=== PATIENT | female | born 1940 | race Caucasian/White ===

== ENCOUNTER 2017-03-29 13:49 | Emergency (ER) | payer OTHER, MEDICAID ==
[2017-03-29 14:11] VITALS: TEMP 98.1
--- NOTE | 2017-03-29 14:37 | EDPHY ---
H & P Time Seen by Provider: 03/29/17 14:07 HPI/ROS: Over the past 2 days this patient reports a moderate sore throat worse with swallowing. She still able tolerate p.o. fluids and food despite this. She reports mild achiness in the area of the anterior cervical lymph nodes associated with her symptoms and mild fatigue. She is concerned that she may have strep pharyngitis. She explains that her granddaughter presented with a sore throat that clinically looked consistent with strep this past week and was treated with antibiotics. No strep test was obtained on her granddaughter. ROS: No fevers or chills. No other constitutional symptoms HEENT: No dysphonia. No other complaints including no nasal congestion. Pulmonary: No cough. GI: No nausea vomiting new lines integumentary: No skin rash Musculoskeletal: No joint pains. 5 point ROS is otherwise negative. Past Medical/Surgical History: Immunocompetent. Hypothyroid Obese Smoking Status: Former smoker Physical Exam: Physical Exam Vital signs are normal. General: No acute distress HEENT: Oropharynx: No significant erythema. No exudates. No dysphonia. No drooling or stridor. Ears: Clear bilaterally nose is clear. Neck: No cervical lymphadenopathy is appreciated. Supple Eyes: Pupils equal and react to light. Extraocular motions are intact. Lungs: Clear to auscultation bilaterally. No respiratory distress. Cardiac: Regular rate and rhythm with no murmur gallop or rub Skin: No rash or pallor. Neuro: GCS 15. Initial differential diagnosis: Viral pharyngitis versus strep pharyngitis versus anxiety with somatic components. Constitutional: Initial Vital Signs Temperature (C) 36.7 C 03/29/17 14:08 Heart Rate 100 03/29/17 14:08 Respiratory Rate 20 03/29/17 14:08 Blood Pressure 148/78 H 03/29/17 14:08 O2 Sat (%) 94 03/29/17 14:08 O2 Delivery Mode Room Air Allergies/Adverse Reactions: wheat [Wheat] Allergy (Intermediate, Verified 03/29/17 14:06) BUTT ITCHES AFTER GOING TO BATHROOM/ STOMACH HURTS buspirone [Buspirone] Allergy (Unknown, Verified 03/29/17 14:06) lisinopril Allergy (Unknown, Verified 03/29/17 14:06) meloxicam Allergy (Unknown, Verified 03/29/17 14:06) tizanidine [Tizanidine] Allergy (Unknown, Verified 03/29/17 14:06) ANIMAL DANDER Allergy (Intermediate, Uncoded 03/29/17 14:06) ITCHY/ EYES HURT DAIRY Allergy (Intermediate, Uncoded 03/29/17 14:06) STOMACH PAIN ENVIRONMENTAL Allergy (Mild, Uncoded 03/29/17 14:06) NASAL CONGESTION/ITCHING ANTIDEPRESSANTS Allergy (Unknown, Uncoded 03/29/17 14:06) ROZAREM Allergy (Unknown, Uncoded 03/29/17 14:06) Home Medications: Medication Instructions Recorded CELECOXIB [Celebrex] 200 mg PO DAILY PRN 09/28/11 Epinastine 0.05% [Elestat 0.05%] 1 drops EACHEYE BID 09/28/11 Levothyroxine [Synthroid] 50 mcg PO DAILY 09/28/11 ZOLPIDEM TARTRATE [Ambien Cr] 12.5 mg PO HS 09/28/11 Ascorbic Acid [Vitamin C 500 mg 500 mg PO DAILY 11/21/11 (OTC)] Amoxicillin 2,000 mg PO .X1 PRN 02/22/13 Carboxymethylcellulose Sodium 3 drops EACHEYE QID 02/22/13 [Refresh Tears] Chlorpheniramine/Phenylephrine 1 tab PO HS PRN 02/22/13 [Sinus & Allergy Tablet] Cyclobenzaprine [Flexeril 10 MG 10 mg PO HS PRN 02/22/13 (RX)] Fexofenadine HCl [Ani Allergy] 180 mg PO DAILY PRN 02/22/13 Fluticasone Nasal [Flonase Nasal 1 sprays EACHNARE HS PRN 02/22/13 [place] (RX)] Herbals/Supplements -Info Only 1 each PO AD 02/22/13 Hydrocodone/APAP 5/325 [[place] 1 - 2 tab PO Q4 PRN 02/22/13 5/325 (RX)] Multivit with Calcium,Iron,Min 1 each PO DAILY 02/22/13 [Tab A Amina] Reconciled By 02/22/13 02/22/13 MDM/Departure - MDM Diagnostics: Rapid strep is negative. ED Course/Re-evaluation: Discussion: This patient appears clinically well. I suspect she has a viral pharyngitis. I counseled regarding this. - Depart Disposition: Home, Routine, Self-Care Clinical Impression: Viral pharyngitis Condition: Good Instructions: Pharyngitis (ED) Additional Instructions: Diagnosis: Viral pharyngitis Plan: Ibuprofen and/or Tylenol for discomfort as needed Symptoms should improve over the next 3-5 days. Return for any significant worsening despite the treatment plan Referrals: Jenny Briones MD [Primary Care Provider] - As per Instructions
[2017-03-29 14:45] VITALS: BP 159/73; PULSE 88; RESP 18; O2SAT 93
== END 2017-03-29 14:45 | disposition home or self-care (01) ==
LOC: CED 13:49
DX: J02.8 Acute pharyngitis due to other specified organisms (principal); B97.89 Other viral agents as the cause of diseases classified elsewhere; Z87.891 Personal history of nicotine dependence
CPT/HCPCS: 87880-PO

== ENCOUNTER → 2017-04-29 | Outpatient (CLI) | payer OTHER, MEDICAID | LOC: CIMAGING 07:47 | PROVIDERS: ATTEND Internal Medicine | DX: M79.89 Other specified soft tissue disorders (principal); L98.9 Disorder of the skin and subcutaneous tissue, unspecified | CPT/HCPCS: 93971-PO ==

== ENCOUNTER 2017-06-23 12:47 | Emergency (ER) | payer OTHER, MEDICAID ==
[2017-06-23 13:04] VITALS: RESP 18; TEMP 98.1
--- NOTE | 2017-06-23 13:39 | EDPHY ---
H & P Stated Complaint: says was "exposed to toxic fumes". pfeiffer/resp/mult complaints since / Time Seen by Provider: 06/23/17 12:52 HPI/ROS: Chief Complaint: Congestion, shortness of breath, headache, dizziness HPI: 76-year-old woman presenting with headache, dizziness, sinus congestion, some shortness of breath. She states that this began after the of last month when people working in the backyard of her apartment. She is concerned that she has been exposed to some fumes in her apartment building. She has had maintenance and [employer] come out several times and have checked not found any abnormalities. She does state there has been increasing odor. She has got increasing congestion. She has been prescribed an inhaler in the past but has run out. Has had some mild cough. Is nonproductive. No fevers or chills. No nausea or vomiting. Does have some sinus headache. She has not followed up with primary care physician ROS: 10 point Review of Systems is negative except as noted in the HPI. PMH: Asthma, COPD, fibromyalgia, chronic fatigue, hypertension Social History: No smoking, no alcohol, no recreational drug use Family History: non-contributory Physical Exam: Gen: Awake, Alert, No Distress HEENT: Nose: no rhinorrhea Eyes: PERRLA, EOMI Mouth: Moist mucosa Neck: Supple, no JVD Chest: nontender, lungs clear to auscultation Heart: S1, S2 normal, no murmur Abd: Soft, non-tender, no guarding Back: no CVA tenderness, no midline tenderness Ext: no edema, non-tender Skin: no rash Neuro: CN II-XII intact, Sensation grossly intact, Strength 5/5 in bilateral upper and lower extremities - Personal History Current Tetanus Diphtheria and Acellular Pertussis (TDAP): Yes Tetanus Vaccine Date: Unsure - Medical/Surgical History Hx Asthma: No Hx Chronic Respiratory Disease: Yes Hx Diabetes: No Hx Cardiac Disease: No Hx Renal Disease: No Hx Cirrhosis: No Hx Alcoholism: No Hx HIV/AIDS: No Hx Splenectomy or Spleen Trauma: No Other PMH: thyroid, chronic pain, chronic fatigue syndrome, arthrisis, fibromylagia, hip and knee replacement, gallbladder, appendectomy, tonsillectomy - Social History Smoking Status: Former smoker Constitutional: Initial Vital Signs Temperature (C) 36.7 C 06/23/17 12:55 Heart Rate 92 06/23/17 12:55 Respiratory Rate 18 06/23/17 12:55 Blood Pressure 170/90 H 06/23/17 12:55 O2 Sat (%) 95 06/23/17 12:55 O2 Delivery Mode Room Air Allergies/Adverse Reactions: wheat [Wheat] Allergy (Intermediate, Verified 06/23/17 13:10) BUTT ITCHES AFTER GOING TO BATHROOM/ STOMACH HURTS buspirone [Buspirone] Allergy (Unknown, Verified 06/23/17 13:10) lisinopril Allergy (Unknown, Verified 06/23/17 13:10) meloxicam Allergy (Unknown, Verified 06/23/17 13:10) tizanidine [Tizanidine] Allergy (Unknown, Verified 06/23/17 13:10) ANIMAL DANDER Allergy (Intermediate, Uncoded 03/29/17 14:06) ITCHY/ EYES HURT DAIRY Allergy (Intermediate, Uncoded 06/23/17 13:10) STOMACH PAIN ENVIRONMENTAL Allergy (Mild, Uncoded 06/23/17 13:10) NASAL CONGESTION/ITCHING ANTIDEPRESSANTS Allergy (Unknown, Uncoded 06/23/17 13:10) ROZAREM Allergy (Unknown, Uncoded 06/23/17 13:10) Home Medications: Medication Instructions Recorded CELECOXIB [Celebrex] 200 mg PO DAILY PRN 09/28/11 Epinastine 0.05% [Elestat 0.05%] 1 drops EACHEYE BID 09/28/11 Levothyroxine [Synthroid] 50 mcg PO DAILY 09/28/11 ZOLPIDEM TARTRATE [Ambien Cr] 12.5 mg PO HS 09/28/11 Ascorbic Acid [Vitamin C 500 mg 500 mg PO DAILY 11/21/11 (OTC)] Carboxymethylcellulose Sodium 3 drops EACHEYE QID 02/22/13 [Refresh Tears] Chlorpheniramine/Phenylephrine 1 tab PO HS PRN 02/22/13 [Sinus & Allergy Tablet] Cyclobenzaprine [Flexeril 10 MG 10 mg PO HS PRN 02/22/13 (RX)] Fexofenadine HCl [Ani Allergy] 180 mg PO DAILY PRN 02/22/13 Fluticasone Nasal [Flonase Nasal 1 sprays EACHNARE HS PRN 02/22/13 [place] (RX)] Hydrocodone/APAP 5/325 [[place] 1 - 2 tab PO Q4 PRN 02/22/13 5/325 (RX)] Albuterol [Proventil Inhaler HFA 1 - 2 puffs IH Q4H PRN #1 mdi 06/23/17 (*)] Alphagan 0.2% 06/23/17 Ambien 06/23/17 Bp Med 06/23/17 Inhaler, Assist Devices [Space 1 each MC Q4H PRN #1 spacer 06/23/17 Chamber Plus] Latanoprost 0.005% 06/23/17 Restasis Opht Drops(*) 06/23/17 Medical Decision Making - Diagnostics Imaging Results: Imaging Impressions Chest X-Ray 06/23/17 13:29 Impression: Mild airways disease. No pneumonia. ED Course/Re-evaluation: Chest a consistent with bronchitis. CBC and basic metabolic panel are normal. The carbon monoxide is sent [facility] to [facility] however she is not hypoxic and I do not have a high suspicion of carbon monoxide poisoning. We will follow up on these and call her later today if there is an abnormality. I prescribed dry but her an albuterol inhaler with a spacer. There is no indication for antibiotics at this time. She will follow up with primary care physician in 2- 3 days and certainly return for any worsening symptoms. - Data Points Laboratory Results: Laboratory Results 06/23/17 13:50 06/23/17 13:50 06/23/17 06/23/17 06/23/17 13:50 13:50 13:50 WBC 6.12 10^3/uL 10^3/uL (3.80-9.50) RBC 4.65 10^6/uL 10^6/uL (4.18-5.33) Hgb 14.8 g/dL g/dL (12.6-16.3) Hct 42.3 % % (38.0-47.0) MCV 91.0 fL fL (81.5-99.8) MCH 31.8 pg pg (27.9-34.1) MCHC 35.0 g/dL g/dL (32.4-36.7) RDW 13.3 % % (11.5-15.2) Plt Count 155 10^3/uL 10^3/uL (150-400) MPV 8.8 fL fL (8.7-11.7) Neut % (Auto) 54.1 % % (39.3-74.2) Lymph % (Auto) 33.0 % % (15.0-45.0) [place] % (Auto) 6.4 % % (4.5-13.0) Eos % (Auto) 5.2 % % (0.6-7.6) Baso % (Auto) 0.8 % % (0.3-1.7) Nucleat RBC Rel Count 0.0 % % (0.0-0.2) Absolute Neuts (auto) 3.31 10^3/uL 10^3/uL (1.70-6.50) Absolute Lymphs (auto) 2.02 10^3/uL 10^3/uL (1.00-3.00) Absolute Monos (auto) 0.39 10^3/uL 10^3/uL (0.30-0.80) Absolute Eos (auto) 0.32 10^3/uL 10^3/uL (0.03-0.40) Absolute Basos (auto) 0.05 10^3/uL 10^3/uL (0.02-0.10) Absolute Nucleated RBC 0.00 10^3/uL 10^3/uL (0-0.01) Immature Gran % 0.5 % % (0.0-1.1) Immature Gran # 0.03 10^3/uL 10^3/uL (0.00-0.10) Carboxyhemoglobin Pending Sodium 141 mEq/L mEq/L (134-144) Potassium 4.3 mEq/L mEq/L (3.5-5.2) Chloride 104 mEq/L mEq/L (97-110) Carbon Dioxide 25 mEq/l mEq/l (22-31) Anion Gap 12 mEq/L mEq/L (8-16) BUN 15 mg/dL mg/dL (7-23) Creatinine 0.6 mg/dL mg/dL (0.6-1.0) Estimated GFR > 60 Glucose 115 mg/dL H mg/dL (70-100) Calcium 9.4 mg/dL mg/dL (8.5-10.4) Departure - Departure Disposition: Home, Routine, Self-Care Clinical Impression: Bronchitis Condition: Good Instructions: Acute Bronchitis (ED) Additional Instructions: Follow up with her primary care physician in 2-3 days for recheck. Return to the emergency department for increasing chest pain, worsening shortness of breath, fevers, chills, uncontrolled nausea or vomiting, fainting, or any other concerns. Referrals: Jenny Briones MD [Primary Care Provider] - As per Instructions Prescriptions: Albuterol [Proventil Inhaler HFA (*)] 1 - 2 puffs IH Q4H PRN #1 mdi PRN Reason: Wheezing Inhaler, Assist Devices [Space Chamber Plus] 1 each MC Q4H PRN #1 spacer PRN Reason: Wheezing
[2017-06-23 14:07] LABS: PLATELET COUNT 155 10^3/uL (150-400)
[2017-06-23 14:44] VITALS: BP 145/86; PULSE 79; O2SAT 93
== END 2017-06-23 14:42 | disposition home or self-care (01) ==
LOC: CED 12:47
DX: J40 Bronchitis, not specified as acute or chronic (principal); J44.9 Chronic obstructive pulmonary disease, unspecified; I10 Essential (primary) hypertension; Z87.891 Personal history of nicotine dependence
CPT/HCPCS: 71020-PO; 80048-PO; 85025-PO

== ENCOUNTER 2018-05-18 15:00 | Emergency (ER) | payer OTHER, MEDICAID ==
[2018-05-18 15:17] VITALS: BP 164/96
--- NOTE | 2018-05-18 15:34 | EDPHY ---
H & P Time Seen by Provider: 05/18/18 15:18 HPI/ROS: HPI Sinus congestion. 77-year-old female by private vehicle. She reports that she has had sinus congestion and nasal congestion ongoing for over a week now. She reports that she took Keflex over period of about 5 days which was not prescribed for this specific purpose but she had left over from some other prescription. She reports that she had no improvement. She presents to the emergency department complaining of continued sinus pressure and congestion as well as nasal congestion. ROS: Constitutional: No fever, no chills. No weakness. Eyes: No discharge. No changes in vision. ENT: No sore throat. As above. Respiratory: No cough. No shortness of breath. Cardiac: No chest pain, no palpitations. Gastrointestinal: No abdominal pain, no vomiting, no diarrhea. Musculoskeletal: No back pain. No neck pain. Skin: No rashes. Neurological: No headache. No focal weakness or altered sensation. Past medical history: Hypothyroid, chronic pain, chronic fatigue syndrome, arthritis, fibromyalgia, hip and knee replacements, cholecystectomy, appendectomy, tonsillectomy, hypertension, COPD. Her primary care physician is Dr. Michelle Correa. Social history: Former smoker. Currently here by herself. Resides at a assisted living facility. Uses a cane to ambulate. No alcohol. Physical Exam: General Appearance: Alert, no distress. This patient is responding to questions appropriately and in full sentences. This patient appears well- hydrated and well-nourished. Eyes: Pupils equal and round no pallor or injection. Mild lid edema, no erythema or injection. ENT, Mouth: Mucous membranes are moist. The pharyngeal tissues are unremarkable. No edema or swelling. No asymmetry suggestive of abscess. No erythema or exudates. She does have mild tenderness on palpation of the maxillary sinuses as well as the frontal sinuses. No erythema, warmth or edema noted over these areas on inspection and palpation. No appreciable cervical, submandibular, submental lymphadenopathy. Normal upper airway sounds. No stridor. No acute voice changes. Respiratory: There are no retractions, lungs are clear to auscultation with good air movement bilaterally. No tachypnea. Cardiovascular: Regular rate and rhythm. No murmur. Neurological: Motor sensory function is grossly intact. Cranial nerves are normal. Gait is normal. Skin: Warm and dry, no rashes. Musculoskeletal: Neck is supple and nontender. No pain on flexion neck. Extremities are symmetrical. All joints range without pain or impingement. Psychiatric: No agitation. No depression. Database: EKG: Imaging: Procedures: Emergency department course: Triage vital signs reviewed. She is moderately hypertensive. Vital signs otherwise normal. She is afebrile. Her presentation is consistent with either a viral or a environmental allergy upper airway infection/syndrome with sinusitis. I feel a bacterial etiology is unlikely. She does not appear toxic and does not have fever. Plan will be to treat her with a long-acting antihistamine, Ani D as well as nasal steroids. She will follow up with her primary care physician on Friday week for re-evaluation. She feels comfortable with this plan and comfortable going home. Return to emergency department precautions reviewed with her. All of her questions were answered. She was discharged from the emergency department in good condition. Differential Diagnosis: The differential diagnosis on this patient includes but is not limited to upper respiratory infection, sinusitis, environmental allergies. Bacterial sinusitis , serious bacterial infection unlikely. This represents a partial list of diagnoses considered. These considerations are based on history, physical exam , past history, reassessment and diagnostic testing. Smoking Status: Former smoker Constitutional: Initial Vital Signs Temperature (C) 36.5 C 05/18/18 15:09 Heart Rate 84 05/18/18 15:09 Respiratory Rate 20 05/18/18 15:09 Blood Pressure 164/96 H 05/18/18 15:09 O2 Sat (%) 93 05/18/18 15:09 Allergies/Adverse Reactions: buspirone [Buspirone] Allergy (Verified 05/18/18 15:19) Pt unsure of reaction lisinopril Allergy (Verified 05/18/18 15:19) Pt unsure of reaction meloxicam Allergy (Verified 05/18/18 15:19) Pt unsure of reaction tizanidine [Tizanidine] Allergy (Verified 05/18/18 15:19) Pt unsure of reaction wheat [Wheat] Allergy (Verified 05/18/18 15:19) BUTT ITCHES Pt reportsAFTER GOING TO BATHROOM/ STOMACH HURTS ANIMAL DANDER Allergy (Uncoded 05/18/18 15:19) Pt reports ITCHY/ EYES HURT ANTIDEPRESSANTS Allergy (Uncoded 05/18/18 15:19) Pt unsure of reaction DAIRY Allergy (Uncoded 05/18/18 15:19) Pt reports STOMACH PAIN ENVIRONMENTAL Allergy (Uncoded 05/18/18 15:19) Pt reports NASAL CONGESTION/ITCHING ROZAREM Allergy (Uncoded 05/18/18 15:19) Pt unsure of reaction Home Medications: Medication Instructions Recorded Alphagan 0.2% 03/19/18 Amlodipine Besylate 03/19/18 Celecoxib 03/19/18 Hydrocortisone 0.2% Valerate 1 sarah TP BID #1 crtube 03/19/18 [[place] 0.2% Cream (*)] Levothyroxine Sodium 03/19/18 [place] 5/325 (*) 03/19/18 Omeprazole 03/19/18 Refresh Optive Advanced Drops 03/19/18 Restasis Multidose 03/19/18 Zolpidem Tartrate 03/19/18 Fexofenadine/Pseudoephedrine 1 each PO BID #10 tab.er.12h 05/18/18 [Ani-D 12 Hour Tablet] Fluticasone Propionate [Flonase 9.9 ml NS BID #1 spray.susp 05/18/18 Allergy Relief] [place] 0.01% (*) 05/18/18 Departure - Departure Disposition: Home, Routine, Self-Care Clinical Impression: Sinusitis, Upper respiratory infection Condition: Good Instructions: Sinusitis (ED) Additional Instructions: Read and follow provided instructions. Follow-up with your primary care physician in 1-2 days for re-evaluation as discussed. It is very important you do this. Take medication as prescribed. Return to the emergency department for worsening symptoms, difficulty breathing , fever, vomiting, cough, worsening headache or other serious concerns. Stay well hydrated. Referrals: Jenny Briones MD [Primary Care Provider] - As per Instructions Prescriptions: Fexofenadine/Pseudoephedrine [Ani-D 12 Hour Tablet] 1 each PO BID #10 tab.er.12h Fluticasone Propionate [Flonase Allergy Relief] 9.9 ml NS BID #1 spray.susp
== END 2018-05-18 15:55 | disposition home or self-care (01) ==
LOC: CED 15:00
DX: J32.9 Chronic sinusitis, unspecified (principal); J06.9 Acute upper respiratory infection, unspecified

== ENCOUNTER 2018-06-01 13:54 | Emergency (ER) | payer OTHER, MEDICAID ==
--- NOTE | 2018-06-01 14:04 | EDPHY ---
HPI/HX/ROS/PE/MDM Narrative: CHIEF COMPLAINT: Dizziness HPI: 77 year old female with past medical history including hypertension, COPD, and hypothyroid. She arrives via EMS following an intense episode of dizziness associated with head pressure. She took a new prescription for Ani D two nights ago after recent evaluation for sinusitis at the [facility] emergency department 05/18/18. She endorses fatigue the following day. Today, she took hydrocodone, Celebrex, and Ani all together, which she does not usually do. Later, she had sudden onset dizziness and pressure sensation in her head. She felt warm and diaphoretic. She denies any loss of consciousness. She currently feels much better. She denies history of stroke or heart attack. She denies fever, nausea, vomiting, chest pain, shortness of breath, urinary complaints, or other associated symptoms. REVIEW OF SYSTEMS: Aside from elements discussed in the HPI, a comprehensive 10-point review of systems was reviewed and is negative. PMH: Hypothyroid, chronic pain, chronic fatigue syndrome, arthritis, fibromyalgia, hip and knee replacements, cholecystectomy, appendectomy, tonsillectomy, hypertension, COPD. SOCIAL HISTORY: Former smoker. Resides at an assisted living facility. Denies alcohol use. PCP Dr. Michelle Correa. PHYSICAL EXAM: General:Patient is alert, in no acute distress. ENT:Eyes are normal to inspection. ENT inspection normal. Neck: Normal inspection. Full range of motion. Respiratory:No respiratory distress. Breath sounds normal bilaterally. Cardiovascular: Regular rate and rhythm. Strong peripheral pulses. Normal cap refill. Abdomen:The abdomen is nontender to palpation. There are no peritoneal signs. There are normal bowel sounds. Back: Normal to inspection. No tenderness to palpation. Skin: Normal color. No rash. Warm and dry. Extremities: Normal appearance. Full range of motion. Neuro: Oriented x3. Normal motor function. Normal sensory function. ED Course: 77 year old female presents following an episode of dizziness and head pressure , now resolved. Exam is unremarkable. Plan for EKG, labs including CBC, chemistries, troponin. Plan for CT head for further evaluation. EKG was ordered and interpreted by myself. Please see [employer] system for official reading. Sinus rhythm. Troponin is negative at 0.00. Labs otherwise unremarkable. 15:[address] Duncan, radiologist. CT head is negative for acute processes. Reassessed. Discussed imaging and laboratory results. Plan to discharge home in good condition. She will follow up with her primary care provider. Return precautions discussed. She is comfortable with this plan. MDM: This patient presents essentially for a sudden shock like sensation that occurred in her head and which has since resolved. There are no focal deficits on exam. CTH is negative. I think the patient is safe for outpatient follow- up. - Data Points Imaging Results: Imaging Impressions Head CT 06/01/18 14:08 Impression: 1. No acute intracranial hemorrhage, subdural hematoma, or mass. 2. Minimal maxillary ethmoid sinus disease. No evidence of acute sinusitis. Findings discussed with Emergency Department physician, Todd Rios MD, on 06/01/2018, 15:21. Imaging: Discussed imaging studies w/ call out clerk Radiologist Laboratory Results: Laboratory Results 06/01/18 13:54 06/01/18 13:54 06/01/18 06/01/18 06/01/18 14:13 13:54 13:54 WBC 5.83 10^3/uL 10^3/uL (3.80-9.50) RBC 4.77 10^6/uL 10^6/uL (4.18-5.33) Hgb 15.4 g/dL g/dL (12.6-16.3) Hct 44.1 % % (38.0-47.0) MCV 92.5 fL fL (81.5-99.8) MCH 32.3 pg pg (27.9-34.1) MCHC 34.9 g/dL g/dL (32.4-36.7) RDW 13.2 % % (11.5-15.2) Plt Count 149 10^3/uL L 10^3/uL (150-400) MPV 9.3 fL fL (8.7-11.7) Neut % (Auto) 49.2 % % (39.3-74.2) Lymph % (Auto) 35.8 % % (15.0-45.0) Warren % (Auto) 7.4 % % (4.5-13.0) Eos % (Auto) 6.5 % % (0.6-7.6) Baso % (Auto) 0.9 % % (0.3-1.7) Nucleat RBC Rel Count 0.0 % % (0.0-0.2) Absolute Neuts (auto) 2.87 10^3/uL 10^3/uL (1.70-6.50) Absolute Lymphs (auto) 2.09 10^3/uL 10^3/uL (1.00-3.00) Absolute Monos (auto) 0.43 10^3/uL 10^3/uL (0.30-0.80) Absolute Eos (auto) 0.38 10^3/uL 10^3/uL (0.03-0.40) Absolute Basos (auto) 0.05 10^3/uL 10^3/uL (0.02-0.10) Absolute Nucleated RBC 0.00 10^3/uL 10^3/uL (0-0.01) Immature Gran % 0.2 % % (0.0-1.1) Immature Gran # 0.01 10^3/uL 10^3/uL (0.00-0.10) Sodium 141 mEq/L mEq/L (135-145) Potassium 4.0 mEq/L mEq/L (3.3-5.0) Chloride 102 mEq/L mEq/L (97-110) Carbon Dioxide 28 mEq/l mEq/l (22-31) Anion Gap 11 mEq/L mEq/L (6-14) BUN 14 mg/dL mg/dL (7-23) Creatinine 0.8 mg/dL mg/dL (0.6-1.0) Estimated GFR > 60 Glucose 104 mg/dL H mg/dL (70-100) Calcium 9.5 mg/dL mg/dL (8.5-10.4) POC Troponin I 0.00 ng/mL ng/mL (0.00-0.08) Point of Care Test Results: Chemistry 06/01/18 14:13 POC Troponin I 0.00 ng/mL ng/mL (0.00-0.08) General Time Seen by Provider: 06/01/18 14:01 Initial Vital Signs: Initial Vital Signs Temperature (C) 37 C 06/01/18 14:01 Heart Rate 99 06/01/18 14:01 Respiratory Rate 18 06/01/18 14:01 Blood Pressure 162/110 H 06/01/18 14:01 O2 Sat (%) 98 06/01/18 14:01 O2 Delivery Mode Room Air Allergies/Adverse Reactions: buspirone [Buspirone] Allergy (Verified 05/18/18 15:19) Pt unsure of reaction lisinopril Allergy (Verified 05/18/18 15:19) Pt unsure of reaction meloxicam Allergy (Verified 05/18/18 15:19) Pt unsure of reaction tizanidine [Tizanidine] Allergy (Verified 05/18/18 15:19) Pt unsure of reaction wheat [Wheat] Allergy (Verified 05/18/18 15:19) BUTT ITCHES Pt reportsAFTER GOING TO BATHROOM/ STOMACH HURTS ANIMAL DANDER Allergy (Uncoded 05/18/18 15:19) Pt reports ITCHY/ EYES HURT ANTIDEPRESSANTS Allergy (Uncoded 05/18/18 15:19) Pt unsure of reaction DAIRY Allergy (Uncoded 05/18/18 15:19) Pt reports STOMACH PAIN ENVIRONMENTAL Allergy (Uncoded 05/18/18 15:19) Pt reports NASAL CONGESTION/ITCHING ROZAREM Allergy (Uncoded 05/18/18 15:19) Pt unsure of reaction Home Medications: Medication Instructions Recorded Alphagan 0.2% 03/19/18 Amlodipine Besylate 03/19/18 Celecoxib 03/19/18 Hydrocortisone 0.2% Valerate 1 sarah TP BID #1 crtube 03/19/18 [Westcort 0.2% Cream (*)] Levothyroxine Sodium 03/19/18 Inyokern 5/325 (*) 03/19/18 Omeprazole 03/19/18 Refresh Optive Advanced Drops 03/19/18 Restasis Multidose 03/19/18 Zolpidem Tartrate 03/19/18 Fexofenadine/Pseudoephedrine 1 each PO BID #10 tab.er.12h 05/18/18 [Ani-D 12 Hour Tablet] Fluticasone Propionate [Flonase 9.9 ml NS BID #1 spray.susp 05/18/18 Allergy Relief] Lumigan 0.01% (*) 05/18/18 Hydrocodone/Acetaminophen 1 each PO 06/01/18 [Hydrocodon-Acetaminophn 10-325] Departure - Departure Disposition: Home, Routine, Self-Care Clinical Impression: Headache Condition: Good Instructions: Acute Headache (ED) Additional Instructions: Follow-up with your primary care physician within 2-3 days. Return to the emergency department for recurrence of headache, nausea, vomiting , numbness, weakness, neck pain, fever or other concerns. Use Tylenol and/or ibuprofen as directed as needed. Referrals: Michelle Tomas MD [Medical Doctor] - As per Instructions Report Scribed for: Todd Rios Report Scribed by: Farrah Grady Date of Report: 06/01/18 Time of Report: 14:08 Physician Review and Approval Statement: Portions of this note were transcribed by an ED scribe. I personally performed the history, physical exam, and medical decision making; and confirm the accuracy of the information in the transcribed note.
[2018-06-01 14:25] LABS: PLATELET COUNT 149 10^3/uL (150-400)
[2018-06-01 16:07] VITALS: BP 165/95
--- NOTE | 2018-06-01 20:27 | CPEKG ---
Test Reason : OPEN Blood Pressure : / mmHG Vent. Rate : 085 BPM Atrial Rate : 085 BPM P-R Int : 172 ms QRS Dur : 079 ms QT Int : 373 ms P-R-T Axes : 049 005 067 degrees QTc Int : 444 ms Sinus rhythm Low voltage, precordial leads Confirmed by Todd Riso ([id number] on 06/01/2018 8:27:42 PM Referred By: Confirmed By:Todd Rios
== END 2018-06-01 16:10 | disposition home or self-care (01) ==
LOC: EDBD → EDUNIT#
DX: R42 Dizziness and giddiness (principal); R51 Headache; J01.20 Acute ethmoidal sinusitis, unspecified; J44.9 Chronic obstructive pulmonary disease, unspecified; I10 Essential (primary) hypertension; E03.9 Hypothyroidism, unspecified; Z87.891 Personal history of nicotine dependence
CPT/HCPCS: 84484-PO

== ENCOUNTER → 2018-07-17 | Outpatient (CLI) | payer OTHER | LOC: FIMAGING 13:11 | PROVIDERS: ATTEND Internal Medicine Geriatric Medicine | DX: I65.23 Occlusion and stenosis of bilateral carotid arteries (principal) ==